=== PATIENT | male | born 1980 ===

== ENCOUNTER 2018-08-17 12:22 | Inpatient (IN) | payer OTHER, MEDICAID ==
[2018-08-17] MEDS ORDERED: Sodium Chloride 0.9% 1,000 ML IV ONE (12:25)
[2018-08-17] MEDS ORDERED: Clindamycin 300 MG in Sodium Chloride 0.9% 50 ML IVPB STA (12:26)
--- NOTE | 2018-08-17 12:28 | C.PDOC ---
History Of Present Illness Patient presents to ED for evaluation of laceration to right hand. 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 He is UTD with tetanus vaccination. Patient c/o pain right right medial hand. He is right hand dominant. Time Seen by Provider: 08/17/18 12:23 Chief Complaint (Nursing): Abnormal Skin Integrity History Per: Patient History/Exam Limitations: no limitations Onset/Duration Of Symptoms: Mins Current Symptoms Are (Timing): Still Present Location Of Injury: Right: Hand (right medial hand ) Past Medical History Reviewed: Historical Data, Nursing Documentation, Vital Signs - Medical History PMH: HTN Family History: States: No Known Family Hx Review Of Systems Constitutional: Negative for: Fever, Chills Cardiovascular: Negative for: Chest Pain Respiratory: Negative for: Shortness of Breath Gastrointestinal: Negative for: Nausea, Vomiting Musculoskeletal: Positive for: Other (right hand laceration ) Skin: Negative for: Rash Neurological: Negative for: Weakness, Numbness Physical Exam - Physical Exam Appears: Well, Non-toxic, In Acute Distress (in moderate pain ) Skin: Warm, Dry, Other (see extremity exam ) Head: Atraumatic, Normacephalic Oral Mucosa: Moist Cardiovascular: Rhythm Regular Respiratory: Normal Breath Sounds, No Rales, No Rhonchi, No Wheezing Extremity: Capillary Refill (< 2 sec all digits ), Other (approx 7-8cm laceration of right medial hand, wrapping around 5th MTP, macerated appearance of laceration edges, decreased ROM of 5th digit in flexion) Pulses: Left Radial: Normal, Right Radial: Normal Neurological/Psych: Oriented x3, No Normal Sensation (decreased sensation left 5th digit) ED Course And Treatment - Laboratory Results Result Diagrams: 08/17/18 12:34 08/17/18 12:34 O2 Sat by Pulse Oximetry: 98 (ra) Pulse Ox Interpretation: Normal Progress Note: Blood work, Xray of right hand ordered and reviewed. Patient given IV Clindamycin (PCN allergy), IV moprhine for pain. Xrays shows open fx of 5th phalanx. Discussed patient with hand surgeon Dr. Redmond, would like medical admission and he will take patient to OR in the AM. Nitrous oxide and local lidocaine used for reduction done by me, patient tolerated with some difficulty. Splint applied. - Physician Consult Information Physician Contacted: Barb Alcantar Outcome Of Conversation: Discussed patient with Dr. Alcantar (admits for Jack Benítez) Critical Care Time - Critical Care Note Total Time (in mins): 35 Documented critical care: time excludes all time spent performing seperately billable procedures. Disposition - Disposition Disposition: HOSPITALIZED Disposition Time: 13:42 Condition: STABLE - Clinical Impression Clinical Impression: Laceration of right hand, Open fracture of carpal bone Decision To Admit - Pt Status Changed To: Hospital Disposition Of: Inpatient - Admit Certification Admit to Inpatient:: After my assessment, the patient will require hospitalization for at least two midnights. This is because of the severity of symptoms shown, intensity of services needed, and/or the medical risk in this patient being treated as an outpatient. - InPatient: Physician Admission Certification: I certify that this patient requires 2 or more midnights of care for the following reason:: see notes - . Bed Request Type: Regular Admitting Physician: Barb Alcantar Patient Diagnosis: Laceration of right hand, Open fracture of carpal bone
[2018-08-17] MEDS ORDERED: Morphine 4 MG/ML VIAL ONE (12:38)
[2018-08-17] MEDS ORDERED: Sodium Chloride 0.9% 1,000 ML ONE (12:38)
[2018-08-17 12:39] LABS: BASO % 0.7 % (0.0-2.0); EOS # 0.1 K/uL (0.0-0.7); EOS % 2.4 % (0.0-4.0); HEMOGLOBIN 15.2 g/dL (12.0-18.0); LYMPH # 2.9 K/uL (1.0-4.3); LYMPH % 48.7 % (20.0-40.0); MEAN CELL VOLUME 91.1 fL (80.0-94.0); MEAN CORPUSCULAR HEMOGLOBIN 30.8 pg (27.0-31.0); MEAN CORPUSCULAR HGB CONC 33.8 g/dL (33.0-37.0); MONO # 0.6 K/uL (0.0-0.8); MONO % 10.1 % (0.0-10.0); NEUT # 2.3 K/uL (1.8-7.0); NEUT % 38.1 % (50.0-75.0); RBC 4.95 Mil/uL (4.40-5.90); RED CELL DISTRIBUTION WIDTH 13.7 % (11.5-14.5); WHITE BLOOD COUNT 5.9 K/uL (4.8-10.8)
[2018-08-17 12:52] LABS: INR 1.1; PROTHROMBIN TIME 11.7 SECONDS (9.7-12.2)
[2018-08-17 12:54] LABS: ALB/GLOB RATIO 1.6 (1.0-2.1); ALBUMIN 4.7 g/dL (3.5-5.0); ALT/SGPT 30 U/L (21-72); AST/SGOT 32 U/L (17-59); BLOOD UREA NITROGEN 18 mg/dL (9-20); CALCIUM 8.9 mg/dl (8.6-10.4); GFR NON-AFRICAN AMERICAN > 60
[2018-08-17] MEDS ORDERED: Lidocaine 1% Inj (20ml) INFIL STA (13:06)
--- NOTE | 2018-08-17 13:09 | RAD ---
PROCEDURE: Right Hand Radiographs. HISTORY: right hand laceration r/o fx COMPARISON: None available. FINDINGS: BONES: Severely displaced, angulated, and comminuted fracture deformity of the proximal 5th phalanx. JOINTS: No dislocation. SOFT TISSUES: Soft tissue swelling. No evidence of radiopaque foreign body. OTHER FINDINGS: None. IMPRESSION: Severely displaced, angulated, and comminuted fracture deformity of the proximal 5th phalanx. Severe soft tissue swelling.
--- NOTE | 2018-08-17 14:15 | RAD ---
Date of service: 08/17/2018 PROCEDURE: Radiographs of the right hand HISTORY: POSTREDUCTION COMPARISON: Breast performed earlier the same day. FINDINGS: BONES: Again seen is an acute transverse displaced fracture in the proximal aspect of the proximal phalanx of the little finger with 1 shaft with radial displacement and severe volar angulation. Status post close reduction, no significant interval change in alignment of the displaced fracture fragments. Bone alignment and mineralization are normal. JOINTS: The joint spaces are preserved. SOFT TISSUES: Severe soft tissue swelling in the little finger. OTHER FINDINGS: None. IMPRESSION: Status post close reduction, redemonstration of acute transverse displaced angulated fracture in the proximal aspect of the proximal phalanx of little finger with 1 shaft with radial displacement and severe volar angulation. No significant change in alignment of the fracture fragments.
--- NOTE | 2018-08-17 14:18 | RAD ---
Date of service: 08/17/2018 PROCEDURE: CHEST RADIOGRAPH, 1 VIEW HISTORY: Preoperative examination COMPARISON: None available. FINDINGS: LUNGS: The lungs are well inflated and clear. PLEURA: No pneumothorax or pleural effusion. CARDIOVASCULAR: The heart is normal in size. No aortic atherosclerotic calcifications present. OSSEOUS STRUCTURES: Within normal limits for the patient's age. VISUALIZED UPPER ABDOMEN: Normal. OTHER FINDINGS: None. IMPRESSION: No active pulmonary disease.
[2018-08-17] MEDS: Oxycodone/Acetaminophen 5/325 mg Tab PO PRN ×2 (16:15→21:27)
[2018-08-17] MEDS: Morphine 4 MG/ML VIAL IVP PRN ×2 (19:07→23:58)
--- NOTE | 2018-08-17 19:36 | CP.PCM.HP ---
History of Present Illness - History of Present Illness History of Present Illness: 38-year-old male patient with past medical history of HTN presents to ED with laceration of right hand with pain. 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 Patient is here today with teta nus vaccination. [id number] Present on Admission - Present on Admission Any Indicators Present on Admission: No Past Patient History - Past Medical History & Family History Past Medical History?: No - Past Social History Smoking Status: Never Smoked - CARDIAC Hx Hypertension: Yes - PSYCHIATRIC Hx Substance Use: No - SURGICAL HISTORY Hx Surgeries: No - ANESTHESIA Hx Anesthesia: No Meds Home Medications: Home Medication List Medication Instructions Recorded Confirmed Type Saccharomyces Boulardii [Florastor] 250 mg PO BID 7 Days capsule 08/18/18 Rx Sulfamethoxazole/Trimethoprim 1 each PO Q12 7 Days tablet 08/18/18 Rx [Bactrim Ds Tablet] oxyCODONE/Acetaminophen [Percocet 1 tab PO Q4H PRN #30 tab 08/18/18 Rx 5/325 mg Tab] Allergies/Adverse Reactions: Allergies Allergy/AdvReac Type Severity Reaction Status Date / Time ampicillin Allergy Verified 08/17/18 12:26 Physical Exam - Constitutional Appears: Well - Head Exam Head Exam: ATRAUMATIC, NORMAL INSPECTION, NORMOCEPHALIC - Eye Exam Eye Exam: EOMI, Normal appearance, PERRL Pupil Exam: NORMAL ACCOMODATION, PERRL - ENT Exam ENT Exam: Mucous Membranes Moist, Normal Exam - Neck Exam Neck exam: Positive for: Normal Inspection - Respiratory Exam Respiratory Exam: Decreased Breath Sounds - Cardiovascular Exam Cardiovascular Exam: REGULAR RHYTHM, +S1, +S2 - GI/Abdominal Exam GI & Abdominal Exam: Diminished Bowel Sounds, Soft - Rectal Exam Rectal Exam: Deferred Results - Vital Signs Recent Vital Signs: Last Vital Signs Temp 98.0 F 08/17/18 16:00 Pulse 85 08/17/18 16:00 Resp 20 08/17/18 16:00 BP 150/71 08/17/18 16:00 Pulse Ox 98 08/17/18 16:00 - Labs Result Diagrams: 08/17/18 12:34 08/17/18 12:34 Labs: Laboratory Results - last 24 hr 08/17/18 08/17/18 08/17/18 12:34 12:34 12:34 WBC 5.9 RBC 4.95 Hgb 15.2 Hct 45.1 MCV 91.1 MCH 30.8 MCHC 33.8 RDW 13.7 Plt Count 201 MPV 8.0 Neut % (Auto) 38.1 L Lymph % (Auto) 48.7 H Beauregard % (Auto) 10.1 H Eos % (Auto) 2.4 Baso % (Auto) 0.7 Neut # (Auto) 2.3 Lymph # (Auto) 2.9 Beauregard # (Auto) 0.6 Eos # (Auto) 0.1 Baso # (Auto) 0.0 PT 11.7 INR 1.1 APTT 31 Sodium 139 Potassium 3.6 Chloride 102 Carbon Dioxide 27 Anion Gap 14 BUN 18 Creatinine 0.9 Est GFR ( Amer) > 60 Est GFR (Non-Af Amer) > 60 Random Glucose 139 H Calcium 8.9 Total Bilirubin 0.6 AST 32 ALT 30 Alkaline Phosphatase 75 Total Protein 7.6 Albumin 4.7 Globulin 2.9 Albumin/Globulin Ratio 1.6 Blood Type Antibody Screen 08/17/18 12:34 WBC RBC Hgb Hct MCV MCH MCHC RDW Plt Count MPV Neut % (Auto) Lymph % (Auto) Beauregard % (Auto) Eos % (Auto) Baso % (Auto) Neut # (Auto) Lymph # (Auto) Beauregard # (Auto) Eos # (Auto) Baso # (Auto) PT INR APTT Sodium Potassium Chloride Carbon Dioxide Anion Gap BUN Creatinine Est GFR ( Amer) Est GFR (Non-Af Amer) Random Glucose Calcium Total Bilirubin AST ALT Alkaline Phosphatase Total Protein Albumin Globulin Albumin/Globulin Ratio Blood Type A POSITIVE Antibody Screen Negative
[2018-08-17] MEDS: Clindamycin 600mg/50ml NS 600 MG/50 ML BAG IVPB SCH (21:28)
[2018-08-18] MEDS: Morphine 4 MG/ML VIAL IVP PRN ×2 (05:22→14:57)
[2018-08-18] MEDS: Clindamycin 600mg/50ml NS 600 MG/50 ML BAG IVPB SCH ×2 (05:23→14:43)
[2018-08-18] MEDS: Sodium Chloride 0.9% 1,000 ML IV SCH ×2 (10:48)
[2018-08-18] MEDS ORDERED: Midazolam 2 MG/2 ML VIAL ONE (12:13)
[2018-08-18] MEDS ORDERED: Propofol 10 mg/ml Inj (20 ML) ONE (12:13)
[2018-08-18] MEDS: Clindamycin 600mg/50ml NS 600 MG/50 ML BAG IVPB ONE ×2 (12:40→12:50)
[2018-08-18] MEDS: HYDROmorphone 0.5 mg/0.5 ml ISec IVP PRN ×2 (13:36→13:52)
[2018-08-18] MEDS ORDERED: HYDROmorphone 0.5 mg/0.5 ml ISec ONE ×2 (13:39→13:55)
[2018-08-18 14:40] VITALS: RESP 20
--- NOTE | 2018-08-18 16:08 | CP.PCM.PN ---
Subjective - Date & Time of Evaluation Date of Evaluation: 08/18/18 Time of Evaluation: 16:08 - Subjective Subjective: PATIENT SEEN AND EXAMINED AT THE BEDSIDE Objective - Vital Signs/Intake and Output Vital Signs (last 24 hours): Temp Pulse Resp BP Pulse Ox 98.4 F 87 20 145/81 99 08/18/18 14:39 08/18/18 14:39 08/18/18 14:39 08/18/18 14:39 08/18/18 14:39 Intake and Output: 08/18/18 08/18/18 06:59 18:59 Intake Total 1550 900 Output Total 1800 Balance -250 900 - Medications Medications: Current Medications Clindamycin Phosphate (Cleocin 600mg/50ml Ns) 600 mg in 50 mls @ 100 mls/hr IVPB Q8H MEGAN; Protocol Last Admin: 08/18/18 14:43 Dose: Not Given Sodium Chloride (Sodium Chloride 0.9%) 1,000 mls @ 100 mls/hr IV .Q10H MEGAN Stop: 08/18/18 19:14 Last Admin: 08/18/18 10:48 Dose: Not Given Morphine Sulfate (Morphine) 4 mg IVP Q4 PRN PRN Reason: Pain, severe (8-10) Last Admin: 08/18/18 14:57 Dose: 4 mg Morphine Sulfate (Morphine) 2 mg IVP Q4 PRN PRN Reason: Pain, moderate (4-7) Oxycodone/Acetaminophen (Percocet 5/325 Mg Tab) 1 tab PO Q4H PRN PRN Reason: Pain, Mild (1-3) Stop: 08/20/18 15:22 Last Admin: 08/17/18 21:27 Dose: 1 tab - Labs Labs: 08/17/18 12:34 08/17/18 12:34 PT 11.7 SECONDS (9.7-12.2) 08/17/18 12:34 INR 1.1 08/17/18 12:34 APTT 31 SECONDS (21-34) 08/17/18 12:34 Assessment and Plan - Assessment and Plan (Free Text) Assessment: FOLLOW UP WITH DR Mercy SADLER IN HIS OFFICE -----CALL FOR APPOINTMENT FOLLOW UP WITH DR BRUNNER IN HIS OFFICE ON MONDAY (08/24/2018) - CONTINUE HOME MEDICATION NEW PRESCRIPTION GIVEN PERCOCET ONE TAB Q4H PRN FOR PAIN FLORASTOR 250 MG PO BID FOR 7 DAYS BACTRIM DS ONE TAB PO Q12H FOR 7 DAYS ACTIVITY TOLERATED PER DR BRUNNER KEEP THE DRESSING DRY AND INTACT UNTIL YOUR APPOINTMENT CALL DR Mercy SADLER OR GO TO THE EMERGENCY ROOM IF SYMPTOM RETURN OR WORSENING
[2018-08-18 17:10] VITALS: BP 142/84; PULSE 93; TEMP 98.3
--- NOTE | 2018-08-18 17:27 | CP.PCM.PN ---
Subjective - Date & Time of Evaluation Date of Evaluation: 08/18/18 Time of Evaluation: 10:00 - Subjective Subjective: clinically same Objective - Vital Signs/Intake and Output Vital Signs (last 24 hours): Temp Pulse Resp BP Pulse Ox 98.3 F 93 H 20 142/84 99 08/18/18 17:09 08/18/18 17:09 08/18/18 17:09 08/18/18 17:09 08/18/18 17:09 Intake and Output: 08/18/18 08/18/18 06:59 18:59 Intake Total 1550 900 Output Total 1800 Balance -250 900 - Medications Medications: Current Medications Clindamycin Phosphate (Cleocin 600mg/50ml Ns) 600 mg in 50 mls @ 100 mls/hr IVPB Q8H MEGAN; Protocol Last Admin: 08/18/18 14:43 Dose: Not Given Sodium Chloride (Sodium Chloride 0.9%) 1,000 mls @ 100 mls/hr IV .Q10H MEGAN Stop: 08/18/18 19:14 Last Admin: 08/18/18 10:48 Dose: Not Given Morphine Sulfate (Morphine) 4 mg IVP Q4 PRN PRN Reason: Pain, severe (8-10) Last Admin: 08/18/18 14:57 Dose: 4 mg Morphine Sulfate (Morphine) 2 mg IVP Q4 PRN PRN Reason: Pain, moderate (4-7) Oxycodone/Acetaminophen (Percocet 5/325 Mg Tab) 1 tab PO Q4H PRN PRN Reason: Pain, Mild (1-3) Stop: 08/20/18 15:22 Last Admin: 08/17/18 21:27 Dose: 1 tab - Labs Labs: 08/17/18 12:34 08/17/18 12:34 PT 11.7 SECONDS (9.7-12.2) 08/17/18 12:34 INR 1.1 08/17/18 12:34 APTT 31 SECONDS (21-34) 08/17/18 12:34 - Constitutional Appears: Well - Head Exam Head Exam: ATRAUMATIC, NORMAL INSPECTION, NORMOCEPHALIC - Eye Exam Eye Exam: EOMI, Normal appearance, PERRL Pupil Exam: NORMAL ACCOMODATION, PERRL - ENT Exam ENT Exam: Mucous Membranes Moist, Normal Exam - Neck Exam Neck Exam: Full ROM, Normal Inspection. absent: Lymphadenopathy - Respiratory Exam Respiratory Exam: Decreased Breath Sounds - Cardiovascular Exam Cardiovascular Exam: REGULAR RHYTHM, +S1, +S2 - GI/Abdominal Exam GI & Abdominal Exam: Soft, Diminished Bowel Sounds - Rectal Exam Rectal Exam: Deferred
[2018-08-18] MEDS: Oxycodone/Acetaminophen 5/325 mg Tab PO PRN (17:41)
--- NOTE | 2018-08-18 18:23 | RAD ---
Date of service: 08/18/2018 PROCEDURE: Intraoperative Fluoroscopy. HISTORY: RT HAND FX FINDINGS: Fluoroscopic assistance was provided for right hand surgery. Please refer to the operative report from SHAISTA Angela. 20.6 sec of fluoro time was utilized with a cumulative radiation dose of 0.72 mGy.
--- NOTE | 2018-08-18 18:24 | RAD ---
PROCEDURE: Right Hand Radiographs. HISTORY: S/P ORIF R 5th finger COMPARISON: Right hand radiographs 08/17/2018. FINDINGS: BONES: Cast obscures fine bone and soft-tissue detail. Fracture appears reduced at the proximal phalanx right small finger status post open reduction with solitary screw fixation at fracture site. No new fracture appreciable. JOINTS: No subluxation or dislocation evident throughout. SOFT TISSUES: Normal. OTHER FINDINGS: None. IMPRESSION: Status post ORIF proximal phalanx fracture right small finger. Cast obscures fine bony and soft-tissue detail.
--- NOTE | 2018-08-18 19:26 | PCM.SURG1 ---
Surgeon's Initial Post Op Note - Surgeon's Notes Surgeon: Dr. Redmond [facility] Director: Dr. Deniz Castillo. DPM/PGY1 Type of Anesthesia: General LMA Anesthesia Administered By: Dr. Romano Pre-Operative Diagnosis: Open fracture of the Right 5th finger proximal phalanx. Operative Findings: See Dictation. Post-Operative Diagnosis: Open fracture of the Right 5th finger proximal phal anx. Operation Performed: ORIF of the right 5th toe proximal halanx with repair of the lacerated tissues. Specimen/Specimens Removed: None. Estimated Blood Loss: EBL {In ML}: 10 Blood Products Given: N/A Drains Used: No Drains Post-Op Condition: Good Date of Surgery/Procedure: 08/18/18 Time of Surgery/Procedure: 11:50
[2018-08-26 08:19] VITALS: O2SAT 98
--- NOTE | 2018-09-05 20:12 | OP ---
PROCEDURE DATE: 08/18/2018 PREOPERATIVE DIAGNOSES: 1. Right fifth digit open proximal phalanx fracture. 2. Right fifth digit complex wound, 5 cm. POSTOPERATIVE DIAGNOSES: 1. Right fifth digit open proximal phalanx fracture. 2. Right fifth digit complex wound, 5 cm. PROCEDURES: 1. Right fifth digit open reduction and internal fixation of proximal phalanx. 2. Right fifth digit wound exploration. 3. Right fifth digit open debridement of bone, muscle, and tendon. 4. Right fifth digit flexor tendon tenolysis. 5. Right fifth digit complex wound closure with local advancement flap. SURGEON: Rc Redmond MD ANESTHESIA: General. COMPLICATIONS: None. DISPOSITION: Stable to recovery room. INDICATIONS: A 38-year-old right-hand dominant male who presents to [facility] Emergency Room from work-related accident. 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 The patient was indicated for the above surgery and informed consent was obtained. DESCRIPTION OF PROCEDURE: The patient was taken to the operating room and placed supine on the operating room table. After general anesthesia was given and prophylactic antibiotics, a well-padded tourniquet was placed in the patient's right upper extremity and right upper extremity was then prepped and draped in a standard surgical fashion and timeout was performed. The right hand was elevated and exsanguinated. Tourniquet was inflated to 215 mmHg. The wound was then explored. This was a jagged laceration, almost circumferential starting from the volar aspect of the proximal phalanx down to the fifth webspace and involving the palm. Local flaps were advanced and the finger was explored. There was gross displacement of the fracture fragment. The flexor tendons were inspected and were intact. The A1 bill was incised for decompression. Local tenolysis was performed for debridement of the FDS and FDP tendons. Next, the bony fragments were identified. This was oblique longitudinal split of the proximal phalanx fracture. The fracture fragments were debrided with curette, rongeur, and irrigation. Both fracture fragments were then reduced and held in an anatomic position. Next, a 1.8-mm screw was placed to both the fracture fragments in AO compression mode. This provided good hindu of height, rotation, and anatomic reduction of the fracture. The neurovascular bundles were then identified and were intact. There was injury to the radial digital artery, which was not repairable and partial exploration of the radial digital nerve. Local neurolysis was performed. Work was then begun on closing the wounds. After thorough irrigation, the flaps were brought back together. Local advancement flap was performed on the distal and proximal flap for advancement and tension-free repair. The wound was closed with multiple 4-0 nylon interrupted sutures. The total length of the wound was 5 cm. After this, the tourniquet was deflated. The patient had good capillary refills. Sterile dressing was applied with Xeroform, fluffs, 4 x 4 and short-arm plaster splint. The patient tolerated the procedure well and returned to recovery room in excellent condition. POSTOPERATIVE PLAN: Follow up with me in one week for wound check. Rc Redmond MD
== END 2018-08-18 17:43 | disposition home or self-care (01) | DRG 465 ==
LOC: C.ER 12:22 → C.9E 13:42 → C.6T 14:21
PROVIDERS: ADMIT Internal Medicine Nephrology; ATTEND Internal Medicine Nephrology
PROC: 0HXFXZZ Transfer Right Hand Skin, External Approach (ICD-10-PCS; 2018-08-18)
PROC: 0PBT0ZZ Excision of Right Finger Phalanx, Open Approach (ICD-10-PCS; 2018-08-18)
PROC: 0LN70ZZ Release Right Hand Tendon, Open Approach (ICD-10-PCS; 2018-08-18)
PROC: 0PST04Z Reposition Right Finger Phalanx with Internal Fixation Device, Open Approach (ICD-10-PCS; principal; 2018-08-18 11:30)
DX: S62.616B Displaced fracture of proximal phalanx of right little finger, initial encounter for open fracture (principal); W26.8XXA Contact with other sharp object(s), not elsewhere classified, initial encounter